=== PATIENT | female | born 1990 | race Caucasian/White ===

== ENCOUNTER 2016-06-24 11:51 | Emergency (ER) | payer SELFPAY ==
[~2016-06-24] VITALS: Ht 154.9 cm; Wt 47.7 kg
[2016-06-24] MEDS ORDERED: ONDANSETRON HCL 4 MG TABLET PO ONE (12:45)
[2016-06-24] MEDS ORDERED: IBUPROFEN 600 MG TABLET PO ONE (12:45)
[2016-06-24 12:48] VITALS: BP 124/87
== END 2016-06-24 13:42 | disposition home or self-care (01) ==
LOC: EMS 12:03
DX: S09.90XA Unspecified injury of head, initial encounter (principal); R11.0 Nausea; W22.8XXA Striking against or struck by other objects, initial encounter; Y93.89 Activity, other specified; Y92.810 Car as the place of occurrence of the external cause; Y99.8 Other external cause status
CPT/HCPCS: 99283; Q0162